=== PATIENT | female | born 1960 | race Caucasian/White ===

== ENCOUNTER → 2017-08-01 | Outpatient (CLI) | payer OTHER ==
[~2017-08-01] MED LIST: ASPIR 8181 MG PO; CALCIUM CARBON600 MG PO; Calcium PO; FISH OIL 1,001000 M2 PO; LEVOTHYROXIN0.025 MG PO; METFORMIN HCL500 MG PO; MOBIC15 MG PO; MULTIVITAMINS PO; NORTREL1 EAC1 PO; PROBIOTIC1 EAC1 PO; VITAMIN D1000 UNI1 PO; ZOCOR40 MG PO
== END ==
LOC: M.RAD 10:47
DX: M17.12 Unilateral primary osteoarthritis, left knee (principal); M25.462 Effusion, left knee

== ENCOUNTER 2018-04-28 16:50 | Emergency (ER) | payer OTHER ==
[~2018-04-28] VITALS: Ht 165.1 cm; Wt 117.9 kg
[2018-04-28] MEDS ORDERED: COZAAR 50 MG TA50 MG PO (17:08)
[2018-04-28] MEDS ORDERED: CALTRATE 600 +1 EAC1 PO (17:09)
[2018-04-28] MEDS ORDERED: FLONASE 0.05%50 MCG NASAL (17:09)
[2018-04-28] MEDS ORDERED: PROTONIX40 M1 PO (17:09)
[2018-04-28] MEDS ORDERED: PREDNISONE 20 M20 MG PO (17:37)
[2018-04-28 17:48] VITALS: BP 166/98
== END 2018-04-28 17:52 | disposition home or self-care (01) ==
LOC: M.ERS 16:50
DX: M65.331 Trigger finger, right middle finger (principal); I10 Essential (primary) hypertension; E11.9 Type 2 diabetes mellitus without complications; E78.00 Pure hypercholesterolemia, unspecified; E03.9 Hypothyroidism, unspecified

== ENCOUNTER 2019-01-01 11:05 | Inpatient (IN) | payer OTHER ==
[~2019-01-01] VITALS: Ht 165.1 cm; Wt 127.2 kg
--- NOTE | ~2019-01-01 | PROC ---
[address] [address] PROCEDURE REPORT Name: MELANIE SHAFER Room: [address] IN ..#: [id number] Admission: 01/01/19 Attend Phys: Russell Edwards MD Discharge: Date of : 56 Report #: [id number] THIS REPORT FOR: //name// For GI report, please see the Provation report in Perceptive 7 content. By: [id number] Records Staff FAHAD /MORRIS
--- NOTE | ~2019-01-01 | PROC ---
[address] [address] PROCEDURE REPORT Name: MELANIE SHAFER Room: [address] IN ..#: [id number] Admission: 01/01/19 Attend Phys: Russell Edwards MD Discharge: Date of : 56 Report #: [id number] THIS REPORT FOR: //name// For GI report, please see the Provation report in Perceptive 7 content. By: [id number] Records Staff FAHAD /MORRIS
[~2019-01-01 11:05] MED LIST changes: +CALTRATE 600 +1 EAC1 PO; +COZAAR 50 MG TA50 MG PO; +FLONASE 0.05%50 MCG NASAL; +PREDNISONE 20 M20 MG PO; +PROTONIX40 M1 PO
[2019-01-01 11:21] VITALS: BP 162/93
[2019-01-01] MEDS ORDERED: PROAIR HFA8.5 GM INH (11:35)
[2019-01-01] MEDS ORDERED: MONTELUKAST SODI4 M1 PO (11:35)
[2019-01-01 11:36] LABS: URINE BLOOD NEGATIVE (Negative); URINE CLARITY SL CLOUDY; URINE COLOR DARK YELLOW; URINE GLUCOSE-RANDOM TRACE (Negative); URINE KETONES 2+ (Negative); URINE LEUKOCYTES-REFLEX TRACE (Negative); URINE PROTEIN 1+ (Negative); URINE SPECIFIC GRAVITY 1.025 (1.005-1.030)
[2019-01-01] MEDS ORDERED: TRULICITY1.5 MG/0.5 SUBQ (11:36)
[2019-01-01 11:47] LABS: ABSOLUTE LYMPHOCYTES 1.4 thou/uL (0.8-5.3); ABSOLUTE MONOCYTES 0.7 thou/uL (0.0-1.2); ABSOLUTE NEUTROPHILS 6.3 thou/uL (1.6-8.1); BASOPHILS 0.3 %; EOSINOPHILS 0.1 %; HEMATOCRIT 44.5 % (37.0-47.0); HEMOGLOBIN 15.3 gm/dL (12.0-15.0); LYMPHOCYTES 16.6 %; MCH 29.5 pg (26.0-34.0); MCHC 34.4 g/dL (28.0-37.0); MCV 85.7 fL (80.0-100.0); MONOCYTES 8.7 %; MPV 8.8 fl. (7.2-11.1); NUCLEATED RBCS 0 /100WBC; PLATELET COUNT* 319 thou/uL (150-400); POLYS 74.3 %; RDW-CV 14.3 % (10.5-14.5); WBC 8.5 thou/uL (4.0-11.0)
[2019-01-01 11:50] LABS: URINE BILIRUBIN 2+ (Negative); URINE NITRITE-REFLEX POSITIVE (Negative)
[2019-01-01 11:51] LABS: SQUAMOUS >10 Many /LPF (0-3)
[2019-01-01 11:52] LABS: URINE WBC-REFLEX 0-5 Rare /HPF (0-5)
[2019-01-01 11:53] LABS: BACTERIA-REFLEX 1-9 Few /HPF (None Seen); CASTS None Seen /LPF (None Seen); CRYSTALS None Seen /LPF (None Seen); MUCUS 4-6 Moderate strn/LPF (None Seen); URINE RBC 0-2 Rare /HPF (0-2)
[2019-01-01 11:56] LABS: CREATININE 0.9 mg/dL (0.6-1.3); POTASSIUM 3.6 mmol/L (3.5-5.1)
[2019-01-01 12:00] LABS: ALBUMIN 3.8 g/dL (3.4-5.0); TOTAL PROTEIN 7.7 g/dL (6.4-8.2)
[2019-01-01 13:52] VITALS: BP 154/79
[2019-01-01 14:43] VITALS: BP 152/80
--- NOTE | 2019-01-01 15:48 | EKG ---
[place] [address] ELECTROCARDIOGRAM REPORT Name: MELANIE SHAFER Room: [address] ADM IN .R.#: [id number] Admission: 01/01/19 Attend Phys: Russell Edwards MD Discharge: Date of : 56 Report #: [id number] THIS REPORT FOR: //name// [facility] ED Test Date: 2019-01-01 Test Time: 11:31:57 Pat Name: MELANIE SHAFER Department: Room: [facility] Gender: F Thumb Sewer: : 1960 Requested By: Eddy Cifuentes Order Number: [id number] MD: Baldemar Lyon Measurements Intervals [place] Rate: 93 P: -16 IA: 127 QRS: -3 QRSD: 94 T: -7 QT: 365 QTc: 454 Interpretive Statements Sinus rhythm Abnormal R-wave progression, late transition Baseline wander in lead(s) V1 No previous ECG available for comparison Electronically Signed On 01-01-2019 15:47:55 SALES AND MARKETING SPECIALIST by Baldemar Lyon [email or web address] <ELECTRONICALLY SIGNED> By: Baldemar Lyon MD, [facility] 01/01/19 1547 1131 1131 Baldemar Lyon MD, [facility] /EPI
[2019-01-01 20:30] VITALS: BP 113/70
[2019-01-02 04:17] LABS: ABSOLUTE LYMPHOCYTES 1.2 thou/uL (0.8-5.3); ABSOLUTE MONOCYTES 0.8 thou/uL (0.0-1.2); ABSOLUTE NEUTROPHILS 3.8 thou/uL (1.6-8.1); BASOPHILS 0.2 %; EOSINOPHILS 0.1 %; HEMOGLOBIN 14.4 gm/dL (12.0-15.0); LYMPHOCYTES 20.9 %; MCH 29.1 pg (26.0-34.0); MCHC 33.4 g/dL (28.0-37.0); MCV 87.1 fL (80.0-100.0); MONOCYTES 13.9 %; MPV 8.8 fl. (7.2-11.1); NUCLEATED RBCS 0 /100WBC; PLATELET COUNT* 286 thou/uL (150-400); POLYS 64.9 %; RBC 4.93 mil/uL (4.20-5.00); RDW-CV 14.5 % (10.5-14.5); WBC 5.8 thou/uL (4.0-11.0)
[2019-01-02 04:30] LABS: CALCIUM 8.4 mg/dL (8.5-10.1); CREATININE 0.9 mg/dL (0.6-1.3); POTASSIUM 4.1 mmol/L (3.5-5.1)
[2019-01-02 08:31] VITALS: BP 151/87
--- NOTE | 2019-01-02 15:47 | CON ---
[address] [address] CONSULTATION Name: SONIMELANIE JULIA Room: [address] IN .R.#: [id number] Admission: 01/01/19 Attend Phys: Russell Edwards MD Discharge: Date of : 56 Report #: [id number] THIS REPORT FOR: //name// CC: Russell Crowe DO DICTATED BY: Divya Augustine [facility] DATE OF SERVICE: 01/02/2019 Please note at the time of this dictation, the patient was seen and physically examined by myself. REASON FOR CONSULTATION: Nausea, vomiting, abdominal pain and diarrhea. HISTORY OF PRESENT ILLNESS: This is a 58-year-old female who presented to the Emergency Room with having a 4-day history that started over the weekend on Sunday with nausea and vomiting. She denied any bright red blood or coffee ground emesis; however, she states it was initially a lot of bile and then it was darker, but she did not it was black. She also prior to admission, started having some diarrhea, very loose stool. She states prior to all of this, she started having some abdominal cramping, more in the lower abdominal area 2 weeks prior to the onset of her nausea and vomiting. She also noted that she did have a change in her bowel habits at that time. She states normally her bowels have been soft and formed on a daily basis and they had become a little bit looser and not as frequent when the pain started. She is rating her pain as a 7/10 and feels that her abdomen is somewhat distended. She has not noticed any bright red blood or any black in her stools either. The patient did have a colonoscopy back in 2006 that showed a diverticulosis and a diminutive polyp in the rectum with a repeat in 10 years. The patient has been taking meloxicam on a daily basis for arthritic pain as well as ibuprofen and Tylenol Arthritis for her significant arthritis, which she has been doing for some time. ALLERGIES: No known drug allergies. MEDICATIONS: From home include losartan, pantoprazole, Singulair, Trulicity, Glucophage, Zofran, Mobic, Synthroid, aspirin, multivitamin, calcium carbonate, vitamin D, and ProAir. PAST MEDICAL HISTORY: Type 2 diabetes, hypertension, high cholesterol, hypothyroidism and arthritic pain. PAST SURGICAL HISTORY: Negative. FAMILY HISTORY: Negative [place] [address] CONSULTATION Name: MELANIE SHAFER Room: [address]#: [id number] Admission: 01/01/19 Attend Phys: Russell Edwards MD Discharge: Date of : 56 Report #: [id number] SOCIAL HISTORY: Denies any alcohol, tobacco or illegal drug use. REVIEW OF SYSTEMS: Twelve-point review of systems is essentially negative except what is mentioned in the HPI. PHYSICAL EXAMINATION: VITAL SIGNS: Temperature 36.9, pulse 86, respirations 18, blood pressure 113/70. HEART: Regular rate and rhythm. LUNGS: Diminished, but clear. ABDOMEN: Soft, positive bowel sounds in all 4 quadrants with tenderness noted in the upper region in the epigastric area as well as in the lower abdominal, more so on the left lower abdomen. LABORATORY DATA: Hemoglobin 14.4, white count is 5.8, platelets 286, BUN is 23, creatinine 0.9, GFR 64. The patient was positive for UTI with positive nitrites. CT of the abdomen and pelvis showed a 4 cm segment of circumferential wall thickening in the sigmoid colon, it is nonspecific, questionable focal or colitis or a primary colonic malignancy, possibly an apple core lesion noted. She has dilatation of the colon in the proximal to the sigmoid area as pronounced dilatation of the small bowel. IMPRESSION: 1. Nausea and vomiting. 2. Abdominal pain. 3. Abnormal CT as mentioned above. 4. Change in bowel habits. 5. Gastroesophageal reflux disease. 6. Positive urinary tract infection. 7. Nonsteroidal anti-inflammatory drug use. 8. Gastroesophageal reflux disease. Please note, last EGD at [facility] several years ago. PLAN: 1. EGD today for her nausea and vomiting. 2. Continue her antibiotics, Cipro and Flagyl. 3. Further recommendations to be made after the EGD has been performed to see when the patient would be able to tolerate a prep for colonoscopy. 4. Records from [facility] in [facility] regarding previous EGD. Thank you for allowing us to participate in this patient's care. Please do not hesitate to call with any questions in regard to this consult. Patient presenting with nausea, vomiting and abdominal pain. She was found to have a possible stricture in the distal sigmoid. This could be a diverticular [address] [address] CONSULTATION Name: MELANIE SHAFER Room: [address] IN ..#: [id number] Admission: 01/01/19 Attend Phys: Russell Edwards MD Discharge: Date of : 56 Report #: [id number] stricture, diaphragmatic stricture from NSAID use or a malignancy. EGD today, colonoscopy tomorrow. If she is unable to tolerate the colonoscopy prep she should at least get an enema as it appears to be distal-mid sigmoid. Otherwise agree with assessment and plan as documented by Divya Augustine. <ELECTRONICALLY SIGNED> By: Phuc Manning MD 01/02/19 1547 0937 [id number] Manning MD /nt
[2019-01-02 20:30] VITALS: BP 143/92
[2019-01-03] VITALS (7 sets, daily range): BP systolic 129–159; BP diastolic 70–101
[2019-01-03 03:37] LABS: ABSOLUTE LYMPHOCYTES 1.3 thou/uL (0.8-5.3); ABSOLUTE MONOCYTES 0.9 thou/uL (0.0-1.2); ABSOLUTE NEUTROPHILS 3.6 thou/uL (1.6-8.1); BASOPHILS 0.2 %; EOSINOPHILS 0.1 %; HEMATOCRIT 44.4 % (37.0-47.0); HEMOGLOBIN 14.7 gm/dL (12.0-15.0); LYMPHOCYTES 21.7 %; MCH 28.8 pg (26.0-34.0); MCHC 33.2 g/dL (28.0-37.0); MCV 86.7 fL (80.0-100.0); MONOCYTES 15.9 %; MPV 8.7 fl. (7.2-11.1); NUCLEATED RBCS 0 /100WBC; PLATELET COUNT* 297 thou/uL (150-400); POLYS 62.1 %; RBC 5.12 mil/uL (4.20-5.00); RDW-CV 14.4 % (10.5-14.5); WBC 5.8 thou/uL (4.0-11.0)
[2019-01-03 03:49] LABS: CALCIUM 8.5 mg/dL (8.5-10.1); CREATININE 0.9 mg/dL (0.6-1.3); POTASSIUM 3.8 mmol/L (3.5-5.1)
[2019-01-04] VITALS: BP 108/69
[2019-01-04 04:00] VITALS: BP 132/75
[2019-01-04 06:04] LABS: ABSOLUTE LYMPHOCYTES 1.4 thou/uL (0.8-5.3); ABSOLUTE MONOCYTES 0.8 thou/uL (0.0-1.2); ABSOLUTE NEUTROPHILS 3.3 thou/uL (1.6-8.1); BASOPHILS 0.2 %; EOSINOPHILS 0.2 %; HEMATOCRIT 39.8 % (37.0-47.0); HEMOGLOBIN 13.7 gm/dL (12.0-15.0); LYMPHOCYTES 25.2 %; MCH 29.4 pg (26.0-34.0); MCHC 34.4 g/dL (28.0-37.0); MCV 85.5 fL (80.0-100.0); MONOCYTES 14.3 %; MPV 8.9 fl. (7.2-11.1); NUCLEATED RBCS 0 /100WBC; PLATELET COUNT* 295 thou/uL (150-400); POLYS 60.1 %; RBC 4.65 mil/uL (4.20-5.00); RDW-CV 14.2 % (10.5-14.5); WBC 5.5 thou/uL (4.0-11.0)
[2019-01-04 06:11] LABS: ALBUMIN 2.7 g/dL (3.4-5.0); CALCIUM 7.9 mg/dL (8.5-10.1); CREATININE 0.8 mg/dL (0.6-1.3); POTASSIUM 3.7 mmol/L (3.5-5.1); TOTAL BILIRUBIN 0.7 mg/dL (<0.1-1.0); TOTAL PROTEIN 6.1 g/dL (6.4-8.2)
[2019-01-04 08:05] VITALS: BP 142/89
[2019-01-04 19:30] VITALS: BP 116/76
[2019-01-05 05:31] LABS: ABSOLUTE EOSINOPHILS 0.1 thou/uL (0.0-0.7); ABSOLUTE LYMPHOCYTES 1.5 thou/uL (0.8-5.3); ABSOLUTE MONOCYTES 0.6 thou/uL (0.0-1.2); ABSOLUTE NEUTROPHILS 3.3 thou/uL (1.6-8.1); BASOPHILS 0.5 %; EOSINOPHILS 1.6 %; HEMATOCRIT 40.3 % (37.0-47.0); HEMOGLOBIN 13.6 gm/dL (12.0-15.0); LYMPHOCYTES 27.4 %; MCH 29.3 pg (26.0-34.0); MCHC 33.8 g/dL (28.0-37.0); MCV 86.7 fL (80.0-100.0); MONOCYTES 11.1 %; MPV 8.6 fl. (7.2-11.1); NUCLEATED RBCS 0 /100WBC; PLATELET COUNT* 296 thou/uL (150-400); POLYS 59.4 %; RBC 4.65 mil/uL (4.20-5.00); RDW-CV 14.4 % (10.5-14.5); WBC 5.6 thou/uL (4.0-11.0)
[2019-01-05 06:08] LABS: CALCIUM 8.3 mg/dL (8.5-10.1); CREATININE 0.9 mg/dL (0.6-1.3); POTASSIUM 3.6 mmol/L (3.5-5.1)
[2019-01-05 08:20] VITALS: BP 129/79
[2019-01-05 16:00] VITALS: BP 136/68
[2019-01-05 21:30] VITALS: BP 151/84
[2019-01-06 04:13] LABS: ABSOLUTE EOSINOPHILS 0.2 thou/uL (0.0-0.7); ABSOLUTE LYMPHOCYTES 1.7 thou/uL (0.8-5.3); ABSOLUTE MONOCYTES 0.7 thou/uL (0.0-1.2); BASOPHILS 0.4 %; EOSINOPHILS 2.3 %; HEMATOCRIT 38.8 % (37.0-47.0); HEMOGLOBIN 12.9 gm/dL (12.0-15.0); LYMPHOCYTES 22.1 %; MCHC 33.3 g/dL (28.0-37.0); MCV 86.9 fL (80.0-100.0); MONOCYTES 9.3 %; MPV 7.8 fl. (7.2-11.1); NUCLEATED RBCS 0 /100WBC; PLATELET COUNT* 245 thou/uL (150-400); POLYS 65.9 %; RBC 4.47 mil/uL (4.20-5.00); RDW-CV 14.1 % (10.5-14.5); WBC 7.7 thou/uL (4.0-11.0)
[2019-01-06 04:38] LABS: CALCIUM 8.1 mg/dL (8.5-10.1); CREATININE 0.8 mg/dL (0.6-1.3); POTASSIUM 3.6 mmol/L (3.5-5.1)
[2019-01-06 08:05] VITALS: BP 137/81
[2019-01-06 16:29] VITALS: BP 135/86
[2019-01-06 20:05] VITALS: BP 146/84
[2019-01-07 05:58] LABS: HEMATOCRIT 36.4 % (37.0-47.0); HEMOGLOBIN 12.4 gm/dL (12.0-15.0); MCH 29.4 pg (26.0-34.0); MCHC 34.2 g/dL (28.0-37.0); MPV 8.7 fl. (7.2-11.1); RBC 4.23 mil/uL (4.20-5.00); RDW-CV 13.8 % (10.5-14.5)
[2019-01-07 06:15] LABS: CREATININE 0.6 mg/dL (0.6-1.3)
[2019-01-07 06:23] LABS: POTASSIUM 2.8 mmol/L (3.5-5.1)
[2019-01-07 07:50] VITALS: BP 174/90
[2019-01-07 22:57] VITALS: BP 172/95
[2019-01-08 05:56] LABS: HEMATOCRIT 36.3 % (37.0-47.0); HEMOGLOBIN 12.3 gm/dL (12.0-15.0); MCHC 33.9 g/dL (28.0-37.0); MCV 85.7 fL (80.0-100.0); MPV 8.8 fl. (7.2-11.1); RBC 4.23 mil/uL (4.20-5.00); RDW-CV 14.1 % (10.5-14.5); WBC 8.4 thou/uL (4.0-11.0)
[2019-01-08 06:03] LABS: CALCIUM 7.8 mg/dL (8.5-10.1); CREATININE 0.6 mg/dL (0.6-1.3); POTASSIUM 3.1 mmol/L (3.5-5.1)
[2019-01-08 07:20] VITALS: BP 158/96
[2019-01-08 13:35] VITALS: BP 136/91
[2019-01-08 16:21] VITALS: BP 143/89
[2019-01-08 20:00] VITALS: BP 142/87
[2019-01-09 05:42] LABS: ABSOLUTE EOSINOPHILS 0.1 thou/uL (0.0-0.7); ABSOLUTE LYMPHOCYTES 1.4 thou/uL (0.8-5.3); ABSOLUTE MONOCYTES 0.9 thou/uL (0.0-1.2); ABSOLUTE NEUTROPHILS 8.3 thou/uL (1.6-8.1); BASOPHILS 0.2 %; EOSINOPHILS 1.1 %; HEMATOCRIT 32.8 % (37.0-47.0); HEMOGLOBIN 11.2 gm/dL (12.0-15.0); LYMPHOCYTES 13.1 %; MCH 29.4 pg (26.0-34.0); MCV 86.3 fL (80.0-100.0); MONOCYTES 7.9 %; MPV 9.3 fl. (7.2-11.1); NUCLEATED RBCS 0 /100WBC; PLATELET COUNT* 200 thou/uL (150-400); POLYS 77.7 %; RDW-CV 14.2 % (10.5-14.5); WBC 10.8 thou/uL (4.0-11.0)
[2019-01-09 05:44] LABS: CALCIUM 7.3 mg/dL (8.5-10.1); CREATININE 0.6 mg/dL (0.6-1.3); POTASSIUM 3.6 mmol/L (3.5-5.1)
[2019-01-09 08:50] VITALS: BP 137/86
[2019-01-09 17:00] VITALS: BP 140/97
[2019-01-09 20:15] VITALS: BP 141/91
[2019-01-09 23:17] VITALS: BP 148/94
[2019-01-10] VITALS (21 sets, daily range): BP systolic 75–151; BP diastolic 47–96
[2019-01-10 06:20] LABS: HEMATOCRIT 35.6 % (37.0-47.0); HEMOGLOBIN 11.8 gm/dL (12.0-15.0); MCHC 33.1 g/dL (28.0-37.0); MCV 87.4 fL (80.0-100.0); MPV 9.1 fl. (7.2-11.1); RBC 4.08 mil/uL (4.20-5.00); RDW-CV 14.1 % (10.5-14.5); WBC 12.9 thou/uL (4.0-11.0)
[2019-01-10 06:54] LABS: CREATININE 0.6 mg/dL (0.6-1.3); MAGNESIUM 1.7 mg/dL (1.8-2.4); POTASSIUM 3.8 mmol/L (3.5-5.1); TOTAL BILIRUBIN 0.3 mg/dL (<0.1-1.0); TOTAL PROTEIN 5.5 g/dL (6.4-8.2)
[2019-01-10 15:56] LABS: HEMATOCRIT 40.3 % (37.0-47.0); HEMOGLOBIN 13.5 gm/dL (12.0-15.0); MCH 29.1 pg (26.0-34.0); MCHC 33.5 g/dL (28.0-37.0); MCV 86.7 fL (80.0-100.0); MPV 9.1 fl. (7.2-11.1); NUCLEATED RBCS 0 /100WBC; PLATELET COUNT* 239 thou/uL (150-400); RBC 4.65 mil/uL (4.20-5.00); RDW-CV 14.4 % (10.5-14.5); WBC 13.3 thou/uL (4.0-11.0)
[2019-01-10 16:10] LABS: CALCIUM 8.3 mg/dL (8.5-10.1); CREATININE 0.8 mg/dL (0.6-1.3); POTASSIUM 4.5 mmol/L (3.5-5.1)
[2019-01-10 16:28] LABS: ABSOLUTE LYMPHOCYTES 0.4 thou/uL (0.8-5.3); ABSOLUTE MONOCYTES 0.8 thou/uL (0.0-1.2); ABSOLUTE NEUTROPHILS 12.1 thou/uL (1.6-8.1)
[2019-01-10 16:29] LABS: PLATELET ESTIMATE ADEQUATE
[2019-01-10 16:30] LABS: TOXIC GRANULATION Occasional
[2019-01-10 20:25] LABS: HEMATOCRIT 36.3 % (37.0-47.0); HEMOGLOBIN 12.3 gm/dL (12.0-15.0); MCH 29.4 pg (26.0-34.0); MCHC 33.8 g/dL (28.0-37.0); MCV 86.9 fL (80.0-100.0); RBC 4.18 mil/uL (4.20-5.00); RDW-CV 14.2 % (10.5-14.5)
[2019-01-10 20:33] LABS: APTT 27.5 Seconds (25.0-31.3); INR 1.1; PROTIME 11.4 Seconds (9.20-11.50)
[2019-01-11] VITALS (35 sets, daily range): BP systolic 91–146; BP diastolic 46–91
[2019-01-11 04:59] LABS: HEMATOCRIT 35.7 % (37.0-47.0); HEMOGLOBIN 11.8 gm/dL (12.0-15.0); MCH 28.9 pg (26.0-34.0); MCHC 33.1 g/dL (28.0-37.0); MCV 87.3 fL (80.0-100.0); MPV 9.5 fl. (7.2-11.1); RBC 4.09 mil/uL (4.20-5.00); RDW-CV 14.4 % (10.5-14.5); WBC 19.7 thou/uL (4.0-11.0)
[2019-01-11 05:16] LABS: ALBUMIN 1.6 g/dL (3.4-5.0); CALCIUM 7.6 mg/dL (8.5-10.1); CREATININE 0.9 mg/dL (0.6-1.3); MAGNESIUM 1.5 mg/dL (1.8-2.4); PHOSPHORUS* 3.4 mg/dL (2.5-4.9); TOTAL BILIRUBIN 0.6 mg/dL (<0.1-1.0); TOTAL PROTEIN 5.1 g/dL (6.4-8.2)
[2019-01-11 05:18] LABS: POTASSIUM 3.5 mmol/L (3.5-5.1)
[2019-01-11 11:54] LABS: URINE BILIRUBIN 1+ (Negative); URINE BLOOD 2+ (Negative); URINE CLARITY SL CLOUDY; URINE COLOR DARK YELLOW; URINE GLUCOSE-RANDOM 1+ (Negative); URINE KETONES NEGATIVE (Negative); URINE LEUKOCYTES NEGATIVE (Negative); URINE NITRITE NEGATIVE (Negative); URINE PROTEIN 1+ (Negative); URINE SPECIFIC GRAVITY 1.015 (1.005-1.030); URINE UROBILINOGEN 0.2 E.U./dl (0.2-1.0)
[2019-01-11 11:56] LABS: ICTOTEST (BILI CONFIRMATORY) Negative (Negative)
[2019-01-11 12:18] LABS: MUCUS 0-3 Light strn/LPF (None Seen); SQUAMOUS >10 Many /LPF (0-3)
[2019-01-11 12:19] LABS: BACTERIA >30 Many /HPF (None Seen); CASTS None Seen /LPF (None Seen); CRYSTALS None Seen /LPF (None Seen); URINE RBC 3-10 Few /HPF (0-2); URINE WBC 0-5 Rare /HPF (0-5)
[2019-01-12] VITALS: BP 90/45
[2019-01-12 04:00] VITALS: BP 100/59
[2019-01-12 08:00] VITALS: BP 98/75
[2019-01-12 11:30] VITALS: BP 117/42
[2019-01-12 13:34] LABS: HEMATOCRIT 32.4 % (37.0-47.0); HEMOGLOBIN 10.7 gm/dL (12.0-15.0); MCHC 33.1 g/dL (28.0-37.0); MCV 87.8 fL (80.0-100.0); MPV 9.8 fl. (7.2-11.1); RBC 3.69 mil/uL (4.20-5.00); RDW-CV 14.5 % (10.5-14.5); WBC 21.3 thou/uL (4.0-11.0)
[2019-01-12 13:42] LABS: CALCIUM 7.9 mg/dL (8.5-10.1); CREATININE 1.1 mg/dL (0.6-1.3); MAGNESIUM 2.1 mg/dL (1.8-2.4); PHOSPHORUS* 2.7 mg/dL (2.5-4.9); POTASSIUM 3.4 mmol/L (3.5-5.1)
[2019-01-12 16:00] VITALS: BP 132/63
[2019-01-12 20:00] VITALS: BP 130/70
[2019-01-13] VITALS: BP 96/53
[2019-01-13 04:00] VITALS: BP 118/74
[2019-01-13 04:53] LABS: HEMATOCRIT 23.4 % (37.0-47.0); MCHC 33.6 g/dL (28.0-37.0); MCV 86.2 fL (80.0-100.0); MPV 10.7 fl. (7.2-11.1); RBC 2.71 mil/uL (4.20-5.00); RDW-CV 14.3 % (10.5-14.5); WBC 18.6 thou/uL (4.0-11.0)
[2019-01-13 05:05] LABS: HEMOGLOBIN 7.9 gm/dL (12.0-15.0)
[2019-01-13 05:11] LABS: ALBUMIN 1.2 g/dL (3.4-5.0); CALCIUM 7.6 mg/dL (8.5-10.1); CREATININE 0.9 mg/dL (0.6-1.3); POTASSIUM 3.2 mmol/L (3.5-5.1); TOTAL BILIRUBIN 0.4 mg/dL (<0.1-1.0); TOTAL PROTEIN 5.2 g/dL (6.4-8.2)
[2019-01-13 07:00] VITALS: BP 110/72
[2019-01-13 11:57] VITALS: BP 137/94
--- NOTE | 2019-01-13 12:21 | CON ---
[address] [address] CONSULTATION Name: MELANIE SHAFER Room: [address] IN M.R.#: [id number] Admission: 01/01/19 Attend Phys: Russell Edwards MD Discharge: Date of : 56 Report #: [id number] THIS REPORT FOR: //name// CC: Russell Edwards Ry Crowe DATE OF SERVICE: 01/13/2019 INFECTIOUS DISEASE CONSULTATION ATTENDING PHYSICIAN: Russell Edwards MD REASON FOR EVALUATION: Postoperative persistent leukocytosis in spite of empiric antimicrobial therapy. HISTORY OF PRESENT ILLNESS: Chart reviewed, patient examined, a 58-year-old woman with history of diabetes mellitus type 2, some hypertension, has known history of diverticulitis, who presented on the with complaints of abdominal related pain associated with nausea, vomiting and diarrhea, had been going on for 2 weeks prior, had had some fevers as well. She was evaluated and was found to have a lesion in the sigmoid and underwent colonoscopy, was felt to have benign stricture, ultimately underwent laparoscopic partial colectomy and anastomosis on 01/08/2019. Postop course was complicated by respiratory distress, was confirmed to have bilateral pulmonary emboli. She is still maintained on supplemental oxygen. When on the monitor, had undergone laboratory including CBC, white count has been elevated especially since the and actually increased primarily over the recent days, now greater than 18,000. Empirically, we placed on piperacillin and tazobactam. Subjectively, she feels she has improved. Hemodynamically, she is not overtly labile. She does have moderate degree of pain as well. ALLERGIES: None known. MEDICATIONS: Include rivaroxaban, ipratropium and albuterol inhaler, budesonide, metoprolol, losartan, multivitamin, levothyroxine, insulin, Zosyn, metoclopramide. PAST MEDICAL HISTORY: As described above, diabetes mellitus, history of hypertension, hypothyroidism, elevated cholesterol, and diverticulitis. SOCIAL HISTORY: Nonsmoker, no ethanol, no illicit drug use. FAMILY HISTORY: Noncontributory. REVIEW OF SYSTEMS: Otherwise, unremarkable 10-point review of system exception of the [place] [address] CONSULTATION Name: MELANIE SHAFER Room: [address]#: [id number] Admission: 01/01/19 Attend Phys: Russell Edwards MD Discharge: Date of : 56 Report #: [id number] PHYSICAL EXAMINATION: GENERAL: She is alert, cooperative, appropriate. She is in moderate distress. She does have supplemental oxygen in place. HEENT: Normocephalic. Extraocular muscles intact. NECK: Supple. VITAL SIGNS: Temperature 98.4, pulse 98, respirations 20 and blood pressure 110/72. SKIN: Warm, dry, no rashes. LUNGS: Few scattered crackles bilaterally. HEART: Regular. I do not appreciate a murmur. ABDOMEN: Somewhat distended, soft. There is some tenderness as of the wound VAC in place, mild tenderness to percussion. GENITOURINARY: Deferred. RECTAL: Deferred. LABORATORY DATA: Most recent electrolytes; sodium 139, potassium 3.2, chloride 105, bicarbonate is 22, anion gap of 12, BUN and creatinine of 21 and 0.9, glucose 216. Liver functions, alkaline phosphatase of 137, otherwise unremarkable. Albumin of 1.2, total protein of 5.2. Estimated GFR 64. CBC: White count of 18.6 and highest 21, hemoglobin and hematocrit 7.9 and 23.4, and platelets of 166. TSH is 0.700. Blood cultures sterile thus far , C. diff and PCR was negative. Urinalysis, 0-5 white cells, greater than 30 bacteria. ASSESSMENT AND PLAN: Postoperative abdominal surgery complicated by pulmonary embolism with leukocytosis. I think, it is unlikely a multifactorial etiology. I do not see a clear evidence of a nosocomial related infectious complication at this point, certainly pulmonary source is not excluded. We will repeat the chest x-ray. She remains somewhat tenuous. We will adjust antimicrobial therapy as well. Try to increase her activity and incentive spirometry. Wean off support as allowed. <ELECTRONICALLY SIGNED> By: Jorje Bragg MD 01/13/19 1221 1131 1202Jorje Bragg MD /nt
--- NOTE | 2019-01-13 14:19 | 2DMMODE ---
[place] [address] 2 D/M-MODE ECHOCARDIOGRAM Name: MELANIE SHAFER Room: [address] IN [facility]#: [id number] Admission: 01/01/19 Attend Phys: Russell Edwards, Discharge: Date of : 56 Date of Service: 01/13/19 1419 Report #: [id number] THIS REPORT FOR: //name// APPROVED REPORT Study performed: 01/13/2019 11:21:35 EXAM: Comprehensive 2D, Doppler, and color-flow Echocardiogram Patient Location: In-Patient Room #: [facility] Status: routine BSA: 2.26 HR: 99 bpm BP: 118/74 mmHg Rhythm: NSR Other Information Study Quality: Good Indications Pulmonary Embolism 2D Dimensions IVSd: 10.34 (7-11mm) LVOT Diam: 19.60 (18-24mm) LVDd: 54.16 mm PWd: 10.31 (7-11mm) Ascending Ao: 32.28 (22-36mm) LVDs: 33.36 (25-40mm) Aortic Root: 32.45 mm Volumes Left Atrial Volume (Systole) LA ESV Index: 36.40 mL/m2 Aortic Valve AoV Peak Edson.: 1.61 m/s AO Peak Gr.: 10.41 mmHg LVOT Max P.16 mmHg AO Mean Gr.: 5.07 mmHg LVOT Mean P.91 mmHg LVOT Max V: 1.34 m/s AO V2 VTI: 25.96 cm LVOT Mean V: 0.77 m/s CORNELIA (VTI): 2.52 cm2 LVOT V1 VTI: 21.72 cm Mitral Valve E/A Ratio: 0.97 MV Decel. Time: 240.35 ms MV E Max Edson.: 0.83 m/[place] [address] 2 D/M-MODE ECHOCARDIOGRAM Name: SONIMELANIE JULIA Room: [address] IN .R.#: [id number] Admission: 01/01/19 Attend Phys: Russell Edwards, Discharge: Date of : 56 Date of Service: 01/13/19 1419 Report #: [id number] MV PHT: 69.70 ms MVA (PHT): 3.16 cm2 TDI E/Lateral E': 5.93 E/Medial E': 5.93 Medial E' Edson.: 0.14 m/s Lateral E' Edson.: 0.14 m/s Pulmonary Valve PV Peak Edson.: 1.10 m/s PV Peak Gr.: 4.84 mmHg Tricuspid Valve RAP Estimate: 5.00 mmHg TR Peak Gr.: 31.88 mmHg RVSP: 36.00 mmHg PA Pressure: 36.00 mmHg Left Ventricle The left ventricle is normal size. There is normal LV segmental wall motion. There is normal left ventricular wall thickness. Left ventricular systolic function is normal. The left ventricular ejection fraction is within the normal range. LVEF is 60%. Grade I - abnormal relaxation pattern. Right Ventricle The right ventricle is normal size. The right ventricular systolic function is normal. Atria The left atrium size is normal. The right atrium size is normal. Aortic Valve The aortic valve is normal in structure. No aortic regurgitation is present. There is no aortic valvular stenosis. Mitral Valve The mitral valve is normal in structure. There is no mitral valve regurgitation noted. No evidence of mitral valve stenosis. Tricuspid Valve The tricuspid valve is normal in structure. Trace tricuspid regurgitation. Mild pulmonary hypertension. Pulmonic Valve The pulmonary valve is normal in structure. There is no pulmonic [place] [address] 2 D/M-MODE ECHOCARDIOGRAM Name: MELANIE SHAFER Room: [address] IN [facility]#: [id number] Admission: 01/01/19 Attend Phys: Russell Edwards, Discharge: Date of : 56 Date of Service: 01/13/19 1419 Report #: [id number] Great Vessels The aortic root is normal in size. IVC is normal in size and collapses >50% with inspiration. Pericardium There is no pericardial effusion. <Conclusion> The left ventricle is normal size. There is normal left ventricular wall thickness. Left ventricular systolic function is normal. The left ventricular ejection fraction is within the normal range. LVEF is 60%. Grade I - abnormal relaxation pattern. The right ventricle is normal size. The left atrium size is normal. The aortic valve is normal in structure. The mitral valve is normal in structure. The tricuspid valve is normal in structure. Trace tricuspid regurgitation. Mild pulmonary hypertension. IVC is normal in size and collapses >50% with inspiration. There is no pericardial effusion. There is normal LV segmental wall motion. <ELECTRONICALLY SIGNED> By: Baldemar Lyon MD, FACC 01/13/19 1419 1419 1419 Baldemar Lyon MD, FACC /INF
--- NOTE | 2019-01-13 15:06 | PATH ---
[address] [address] PATHOLOGY RPT PROCEDURE Name: SONIMELANIE SUE Room: [address] IN ..#: [id number] Admission: 01/01/19 Date of : 56 Discharge: Report #: [id number] Path Case #: [id number] Accession Number: [id number] . 01 Material submitted: . colon - SIGMOID COLON, STITCH PROXIMAL END WITH PROX AND DISTAL DONUTS. Modifiers: sigmoid . 01 Clinical history: . Diverticulitis stricture, sigmoid obstruction. . 02 Diagnosis: Sigmoid colon: - Segment of benign colon with severe diverticular disease and with grossly identified stent as well as endoscopic clip in region of chronic and acute diverticulitis with evidence of perforation and abscess formation. - One benign pericolic lymph node. - Two segments of benign colonic "donuts", one with submucosal black pigment-laden histiocytes/tattooing. . (YOLA:mmcharlie; 01/13/2019) QLM 01/13/2019 1246 Local . 02 Electronically signed: . Sai Potter MD, Pathologist NPI- [id number] . 01 Gross description: . Received in formalin labeled "Melanie Bryan, sigmoid colon-stitch proximal with proximal and distal donuts" is an oriented segment of colon measuring 15.5 cm in length and 4.5 cm in diameter. A stent is present within the lumen, measuring 13.2 cm in length and 2.5 cm in diameter. The proximal margin and distal margin are closed with staple lines. The proximal margin displays a suture. The serosa is pink-gallagher and unremarkable. The mucosa displays polypoid nodularity throughout the stent location, measuring 13.5 cm in length and covering the entire luminal circumference in this area. The mucosa adjacent to the margins is gallagher-brown with unremarkable folding. An endoscopic clip is located on the mucosa at the distal aspect of the stent location. Upon sectioning, approximately 5-10 diverticula are identified, ranging from 0.7-1.7 cm in greatest dimension. No perforations are identified. . Also present within the container are two unoriented segments of gallagher-brown mucosa and surrounding bowel wall, consistent with donuts. One portion has a staple line present, this portion measures 1.2 cm in length and 2.0 cm in diameter. The second portion has a suture present, and measures 1.1 cm in length and 2.1 cm in diameter. [employer] [place] [address] PATHOLOGY RPT PROCEDURE Name: MELANIE BRYAN Room: [address] IN [facility].#: [id number] Admission: 01/01/19 Date of : 56 Discharge: Report #: [id number] Path Case #: [id number] specimen are submitted as follows: A1-A2 proximal margin A3-A4 distal margin A5 mucosa at site of endoscopic clip A6-A7 nodular mucosa and underlying diverticula A8 communications representative sections of separate portions of mucosa (donuts) [place]11/[place] [facility] 01/13/2019 1242 Local . 02 Pathologist provided ICD-10: K57.32, K57.30 . 02 CPT . 768191 Specimen Comment: A courtesy copy of this report has been sent to [phone] Specimen Comment: [phone], Specimen Comment: Report sent to ,DR HAMILTON / DR AVILA Performed at: 01 [facility] [address], [place], [place] [id number] MD Jayme Arreola MD Phone: [phone] Performed at: 02 [facility] [address], [place], [place] [id number] MD Sai Potter MD Phone: [phone]
[2019-01-13 16:25] VITALS: BP 131/77
[2019-01-13 23:42] VITALS: BP 126/81
[2019-01-14 03:40] VITALS: BP 119/71
[2019-01-14 05:39] LABS: ABSOLUTE BASOPHILS 0.1 thou/uL (0.0-0.2); ABSOLUTE EOSINOPHILS 0.3 thou/uL (0.0-0.7); ABSOLUTE LYMPHOCYTES 1.1 thou/uL (0.8-5.3); ABSOLUTE MONOCYTES 1.2 thou/uL (0.0-1.2); ABSOLUTE NEUTROPHILS 10.8 thou/uL (1.6-8.1); BASOPHILS 0.4 %; EOSINOPHILS 1.9 %; HEMATOCRIT 28.4 % (37.0-47.0); HEMOGLOBIN 9.5 gm/dL (12.0-15.0); MCH 28.9 pg (26.0-34.0); MCHC 33.6 g/dL (28.0-37.0); MCV 85.9 fL (80.0-100.0); MONOCYTES 9.1 %; MPV 10.3 fl. (7.2-11.1); NUCLEATED RBCS 0 /100WBC; PLATELET COUNT* 192 thou/uL (150-400); POLYS 80.6 %; RBC 3.31 mil/uL (4.20-5.00); RDW-CV 14.6 % (10.5-14.5); WBC 13.4 thou/uL (4.0-11.0)
[2019-01-14 05:56] LABS: ALBUMIN 1.2 g/dL (3.4-5.0); CALCIUM 8.5 mg/dL (8.5-10.1); CREATININE 0.6 mg/dL (0.6-1.3); POTASSIUM 3.6 mmol/L (3.5-5.1); TOTAL BILIRUBIN 0.4 mg/dL (<0.1-1.0); TOTAL PROTEIN 5.5 g/dL (6.4-8.2)
[2019-01-14 06:08] LABS: PREALBUMIN 5.3 mg/dL (18.0-35.7)
--- NOTE | 2019-01-14 10:39 | EKG ---
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: : 1960 Requested By: Regulo Riddle Order Number: [id number] Tamara MD: Julian Parra Measurements Intervals [place] Rate: 143 P: 9 [place]: 130 QRS: 4 QRSD: 84 T: 1 QT: 279 QTc: 431 Interpretive Statements Sinus tachycardia Low voltage, extremity leads Baseline wander in lead(s) III,aVL,aVF,V1,V3,V4,V5,V6 Compared to ECG 01/01/2019 11:31:57 Low QRS voltage now present Sinus rhythm no longer present Electronically Signed On 01-14-2019 10:39:21 MAILHOUSE OPERATOR by Julian Parra [email or web address] <ELECTRONICALLY SIGNED> By: Julian Parra MD, FACC 01/14/19 1039 1605 1605 Julian Parra MD, FACC /EPI
[2019-01-14 11:59] VITALS: BP 120/75
[2019-01-14 16:47] VITALS: BP 139/69
[2019-01-15] VITALS: BP 132/76
[2019-01-15 04:00] VITALS: BP 130/78
[2019-01-15 06:03] LABS: HEMOGLOBIN 9.7 gm/dL (12.0-15.0); MCHC 33.5 g/dL (28.0-37.0); MCV 86.5 fL (80.0-100.0); MPV 10.6 fl. (7.2-11.1); NUCLEATED RBCS 0 /100WBC; PLATELET COUNT* 245 thou/uL (150-400); RBC 3.35 mil/uL (4.20-5.00); RDW-CV 14.4 % (10.5-14.5); WBC 14.3 thou/uL (4.0-11.0)
[2019-01-15 07:14] LABS: ABSOLUTE EOSINOPHILS 0.3 thou/uL (0.0-0.7); ABSOLUTE LYMPHOCYTES 2.3 thou/uL (0.8-5.3); ABSOLUTE MONOCYTES 0.3 thou/uL (0.0-1.2); ABSOLUTE NEUTROPHILS 11.4 thou/uL (1.6-8.1); METAMYELOCYTES 3 %; PLATELET ESTIMATE ADEQUATE
[2019-01-15 08:00] VITALS: BP 131/81
--- NOTE | 2019-01-15 09:09 | OP ---
[address] [address] OPERATIVE REPORT Name: MELANIE SHAFER Room: [address] IN M.R.#: [id number] Admission: 01/01/19 Attend Phys: Russell Edwards MD Discharge: Date of : 56 Report #: [id number] THIS REPORT FOR: //name// CC: Russell Crowe DO DICTATED BY: Damion Lundberg DO DATE OF SERVICE: 01/08/2019 PREOPERATIVE DIAGNOSIS: Sigmoid colon stricture. POSTOPERATIVE DIAGNOSES: Sigmoid colon stricture. SURGEON: Sasha Lui DO APPLICATIONS INSTRUCTOR: Damion Lundberg, PGY4, and Selene MS3 OPERATIONS PERFORMED: Exploratory laparotomy, sigmoidectomy with primary end-to-end anastomosis, rigid proctoscopy and Prevena wound VAC application. ANESTHESIA: General, local and transversus abdominis plane block. ESTIMATED BLOOD LOSS: 100 mL. SPECIMEN: Sigmoid colon. COMPLICATIONS: None. INDICATIONS FOR PROCEDURE: The patient is a 58-year-old female that presented to the Emergency Department and after recent admission for 2-3 weeks of abdominal pain, nausea, vomiting and diarrhea. On CT scan, she was found to have an extended segment of thickened sigmoid colon. 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 She underwent stenting and demarcation of the proximal and distal extents of the stricture using Endoclips and tattooing proximally and distally. She had extensive small bowel dilation, which was treated with NG decompression because of the severity of the stricture, sigmoidectomy was warranted; however, due to her extensive small bowel dilation that was resistant to NG decompression. It was felt safest to proceed with a laparotomy rather than laparoscopy. She was informed of the risks and benefits of laparotomy, sigmoid resection and likely colostomy. She understood these risks and decided to proceed with surgery. DESCRIPTION OF PROCEDURE: After informed consent was obtained, the patient was brought to the operating room and placed in the supine [place] [address] OPERATIVE REPORT Name: MELANIE SHAFER Room: [address] IN ..#: [id number] Admission: 01/01/19 Attend Phys: Russell Edwards MD Discharge: Date of : 56 Report #: [id number] and running. Preoperative antibiotics were Zosyn and Flagyl that had been given on the floor recently before the patient came to the operating room. General anesthesia was administered with an ET tube. The patient had a Thrasher catheter placed. She was then placed in the lithotomy position and secured to the bed. She was prepped and draped in the usual sterile fashion. A surgical pause was held to confirm proper patient and procedure. A 0.5% Marcaine was used to anesthetize the midline abdomen. A 10 blade was used to make an incision that extended from 4 cm superior to the umbilicus to the pubis. Dissection was carried through the subcutaneous fat using cautery until the fascia was identified and incised using cautery and elevated with 2 Kochers. The fascia was opened superiorly and inferiorly. Once this was completely open, the peritoneum was elevated and incised and then completely opened using cautery. A brief exploration of the abdomen was undertaken. There were no palpable abnormalities in the liver. The NG tube was repositioned because it had a kink. Attention was turned towards the left lower quadrant. The involved segment of colon was identified. It was adherent to the left pelvic sidewall as well as to the left abdominal wall. These adhesions were taken down with a combination of blunt dissection and cautery. The proximal and distal extents of the stents were palpable and the tattooing was visible as well. Once a distal extent was decided upon, the mesentery was scored using cautery and a right angle was used to pass through the mesentery. A 75-mm Ethicon MODESTA blue load stapler was fired across the distal extent of the sigmoid. The lateral portion of the sigmoid was taken down along the white line of Toldt to mobilize. This was developed proximally until we were well past the proximal extent of the stent. The mesentery was then scored on the medial aspect along the length of the specimen. The proximal site of stapling was then selected and a 100 mm Ethicon MODESTA stapler was fired across the colon. A LigaSure Impact device was then used to take down the mesocolon along the previously scored peritoneum. Once this was complete, the sigmoid colon was completely free and passed off as the specimen. The left lower quadrant was explored and cautery was used to obtain hemostasis. At this point, we examined the two stapled ends of the bowel, which very nicely laid in close proximity, lending themselves to primary anastomosis. The colon was somewhat enlarged, but this was true for both the proximal and distal portion of the bowel. There was no mismatch in the size of the bowel to preclude anastomosis, although we had initially planned on a colostomy because of her presumed distention. The bowel appeared very healthy, very well perfused, not overly distended and the two stapled ends met with no tension whatsoever. Therefore, it was decided to perform a primary end-to-end anastomosis. Because of the adequate size of the colon, a 31-mm EEA Covidien stapler was selected. On the proximal end of the bowel, a 0 Vic[address] was used to place a pursestring and a colotomy was made to introduce the anvil. Once this was placed, 0 Vicryl was used to approximate the colotomy and the pursestring was closed down. The EEA stapler was then transanally introduced after serial dilation and the spike was brought out through the staple line. The anvil was connected to the EEA stapler and the staple line was closed. The stapler [place] [address] OPERATIVE REPORT Name: MELANIE SHAFER Room: [address] [place] ..#: [id number] Admission: 01/01/19 Attend Phys: Russell Edwards MD Discharge: Date of : 56 Report #: [id number] Once the stapler was opened, it was easily removed from the anus. The donuts were inspected and completely circumferentially intact. At this time, a rigid proctoscopy was performed and air was insufflated past the staple line without any signs of bubbling or leak of air as the staple line was submerged in saline. This was all suctioned out. Some Lembert sutures using 2-0 silk were used to reinforce the staple line. A nearby epiploica from the proximal colon was used to cover the staple line as well and secured using 2-0 silk. The abdomen was then closed. Fascia was closed using 2-0 PDS from above and below using small bites. The peritoneum was included in this closure. The subcutaneous fat was then closed in a layered fashion using 3-0 Vicryl. The skin was closed using óscar. It was decided upon to not place a ANDREA drain as the abdomen was clean and there was no gross contamination and there was no purulent fluid. A Prevena wound VAC was placed after the wounds were cleansed and the patient then underwent a transversus abdominis plain block by Anesthesia bilaterally. She was emerged from anesthesia. Her NG tube and Thrasher were to remain in place. All counts were correct. She was transferred to the PACU in stable condition with plans to return to the floor. <ELECTRONICALLY SIGNED> By: Sasha Lui DO 01/15/19 [id number] Lui DO /nt
[2019-01-15 12:00] VITALS: BP 132/75
[2019-01-15 16:00] VITALS: BP 132/76
[2019-01-16] VITALS: BP 98/61
[2019-01-16 04:00] VITALS: BP 139/78
[2019-01-16 05:09] LABS: ABSOLUTE EOSINOPHILS 0.4 thou/uL (0.0-0.7); ABSOLUTE LYMPHOCYTES 1.6 thou/uL (0.8-5.3); ABSOLUTE MONOCYTES 1.7 thou/uL (0.0-1.2); ABSOLUTE NEUTROPHILS 10.9 thou/uL (1.6-8.1); BASOPHILS 0.2 %; EOSINOPHILS 2.8 %; HEMOGLOBIN 9.2 gm/dL (12.0-15.0); LYMPHOCYTES 10.7 %; MCH 28.5 pg (26.0-34.0); MCV 86.5 fL (80.0-100.0); MONOCYTES 11.5 %; MPV 10.3 fl. (7.2-11.1); NUCLEATED RBCS 0 /100WBC; PLATELET COUNT* 294 thou/uL (150-400); POLYS 74.8 %; RBC 3.24 mil/uL (4.20-5.00); RDW-CV 14.3 % (10.5-14.5); WBC 14.5 thou/uL (4.0-11.0)
[2019-01-16 05:34] LABS: ALBUMIN 1.2 g/dL (3.4-5.0); CALCIUM 7.8 mg/dL (8.5-10.1); CREATININE 0.6 mg/dL (0.6-1.3); POTASSIUM 4.4 mmol/L (3.5-5.1); TOTAL BILIRUBIN 0.4 mg/dL (<0.1-1.0)
[2019-01-16 08:00] VITALS: BP 115/68
[2019-01-16 11:47] VITALS: BP 148/76
[2019-01-16 17:03] VITALS: BP 102/60
[2019-01-16 20:00] VITALS: BP 107/69
[2019-01-17] VITALS: BP 110/55
[2019-01-17 04:00] VITALS: BP 133/72
[2019-01-17 05:40] LABS: CALCIUM 8.4 mg/dL (8.5-10.1); CREATININE 0.6 mg/dL (0.6-1.3); POTASSIUM 4.1 mmol/L (3.5-5.1)
[2019-01-17 08:00] VITALS: BP 140/87
[2019-01-17 12:17] VITALS: BP 126/69
[2019-01-17 16:26] VITALS: BP 142/76
[2019-01-17 20:00] VITALS: BP 126/70
[2019-01-18] VITALS: BP 106/59
[2019-01-18 04:00] VITALS: BP 121/73
[2019-01-18 05:18] LABS: ABSOLUTE BASOPHILS 0.1 thou/uL (0.0-0.2); ABSOLUTE EOSINOPHILS 0.3 thou/uL (0.0-0.7); ABSOLUTE LYMPHOCYTES 1.4 thou/uL (0.8-5.3); ABSOLUTE NEUTROPHILS 7.6 thou/uL (1.6-8.1); BASOPHILS 0.7 %; EOSINOPHILS 2.7 %; HEMATOCRIT 27.9 % (37.0-47.0); HEMOGLOBIN 9.3 gm/dL (12.0-15.0); LYMPHOCYTES 13.7 %; MCH 29.1 pg (26.0-34.0); MCHC 33.5 g/dL (28.0-37.0); MCV 86.8 fL (80.0-100.0); MPV 9.9 fl. (7.2-11.1); NUCLEATED RBCS 0 /100WBC; POLYS 72.9 %; RBC 3.21 mil/uL (4.20-5.00); RDW-CV 14.1 % (10.5-14.5); WBC 10.5 thou/uL (4.0-11.0)
[2019-01-18 05:22] LABS: PLATELET COUNT* 414 thou/uL (150-400)
[2019-01-18 05:48] LABS: CREATININE 0.6 mg/dL (0.6-1.3); MAGNESIUM 1.7 mg/dL (1.8-2.4); POTASSIUM 3.9 mmol/L (3.5-5.1)
[2019-01-18 08:30] VITALS: BP 140/68
[2019-01-18 16:11] VITALS: BP 108/65
[2019-01-18 20:00] VITALS: BP 122/70
[2019-01-19] VITALS: BP 114/72
[2019-01-19 08:15] VITALS: BP 147/63
[2019-01-19 16:00] VITALS: BP 114/72
[2019-01-19 21:00] VITALS: BP 111/63
[2019-01-20 06:09] LABS: HEMATOCRIT 27.5 % (37.0-47.0); HEMOGLOBIN 9.2 gm/dL (12.0-15.0); MCH 28.7 pg (26.0-34.0); MCHC 33.4 g/dL (28.0-37.0); MCV 86.1 fL (80.0-100.0); MPV 8.8 fl. (7.2-11.1); RBC 3.2 mil/uL (4.20-5.00); WBC 9.4 thou/uL (4.0-11.0)
[2019-01-20 06:30] LABS: CALCIUM 8.5 mg/dL (8.5-10.1); CREATININE 0.6 mg/dL (0.6-1.3); MAGNESIUM 1.5 mg/dL (1.8-2.4); PHOSPHORUS* 4.2 mg/dL (2.5-4.9)
[2019-01-20] MEDS ORDERED: MIRALAX17 GM PO (08:09)
[2019-01-20] MEDS ORDERED: LOPRESSOR25 PO (08:09)
[2019-01-20] MEDS ORDERED: PAIN RELIEVER500 MG PO (08:09)
[2019-01-20] MEDS ORDERED: BENTYL 20 MG TA20 M1 PO (08:09)
[2019-01-20] MEDS ORDERED: PULMICORT0.5 MG/2 M INH (08:09)
[2019-01-20] MEDS ORDERED: XARELTO20 MG PO (08:14)
[2019-01-20] MEDS ORDERED: MAGNESIUM400 MG PO (08:14)
[2019-01-20] MEDS ORDERED: OXYCODONE HCL 55 MG PO (08:14)
[2019-01-20] MEDS ORDERED: MINOCYCLINE HC100 M2 PO (08:14)
[2019-01-20] MEDS ORDERED: XARELTO15 MG PO (08:14)
[2019-01-20] MEDS ORDERED: HUMALOG100 UNIT/1 SUBQ (08:23)
[2019-01-20 09:24] VITALS: BP 121/83
[2019-01-20 19:45] VITALS: BP 124/69
[2019-01-21 08:00] VITALS: BP 144/92
[2019-01-21] MEDS ORDERED: VALTREX 500 MG500 M1 PO (08:16)
[2019-01-21 08:37] LABS: HEMATOCRIT 28.1 % (37.0-47.0); HEMOGLOBIN 9.3 gm/dL (12.0-15.0); MCH 28.5 pg (26.0-34.0); MCHC 33.2 g/dL (28.0-37.0); MCV 85.9 fL (80.0-100.0); MPV 8.4 fl. (7.2-11.1); RBC 3.27 mil/uL (4.20-5.00); WBC 9.1 thou/uL (4.0-11.0)
[2019-01-21 08:49] LABS: CALCIUM 8.6 mg/dL (8.5-10.1); CREATININE 0.7 mg/dL (0.6-1.3); MAGNESIUM 1.4 mg/dL (1.8-2.4); PHOSPHORUS* 4.7 mg/dL (2.5-4.9)
[2019-01-21] MEDS ORDERED: BACTRIM DS TAB1 EAC1 PO (15:24)
[2019-01-21 15:25] VITALS: BP 144/92
== END 2019-01-21 14:30 | DRG 853 ==
LOC: M.ERS 11:05 → M.ORTHSURG 13:22 → M.TBA-ER 13:22 → M.2W 13:22 → M.ORTHSURG 14:00 → M.ICU 01-10 18:30 → M.2W 01-11 13:58 → M.ORTHSURG 01-19 13:15
PROVIDERS: Family Medicine; Internal Medicine; Specialist; Surgery; ADMIT Internal Medicine
DX: A41.9 Sepsis, unspecified organism (principal); E43 Unspecified severe protein-calorie malnutrition; I26.99 Other pulmonary embolism without acute cor pulmonale; K57.32 Diverticulitis of large intestine without perforation or abscess without bleeding; N39.0 Urinary tract infection, site not specified; K56.609 Unspecified intestinal obstruction, unspecified as to partial versus complete obstruction; Z68.42 Body mass index [BMI] 45.0-49.9, adult; E87.1 Hypo-osmolality and hyponatremia; K56.7 Ileus, unspecified; T81.72XA Complication of vein following a procedure, not elsewhere classified, initial encounter; T81.40XA Infection following a procedure, unspecified, initial encounter; L03.311 Cellulitis of abdominal wall; T81.32XA Disruption of internal operation (surgical) wound, not elsewhere classified, initial encounter; E11.9 Type 2 diabetes mellitus without complications; I10 Essential (primary) hypertension; E03.9 Hypothyroidism, unspecified; E78.00 Pure hypercholesterolemia, unspecified; K21.9 Gastro-esophageal reflux disease without esophagitis; D72.829 Elevated white blood cell count, unspecified; E86.0 Dehydration; K52.9 Noninfective gastroenteritis and colitis, unspecified; R00.0 Tachycardia, unspecified; E66.01 Morbid (severe) obesity due to excess calories; Z79.1 Long term (current) use of non-steroidal anti-inflammatories (NSAID); Z79.899 Other long term (current) drug therapy